=== PATIENT | female | born 1950 | race Caucasian/White ===

== ENCOUNTER → 2018-05-21 | Outpatient (CLI) | payer MEDICARE ==
[2017-01-11 13:10] VITALS: BMI 30.0
[~2018-05-21] MED LIST: ASC500 PO; CHOL400T22 PO; CIT20 PO; CYCL10TA29 PO; HYDR-653 PO; IBUP-1618 PO; LACT1CAP64 PO; LORA-773 PO; METH-543 PO; OMEG10007 PO; OXYC-865 PO; RANI-366 PO
--- NOTE | 2018-05-21 15:18 | RADIOLOGY IMAGING REPORT ---
FACILITY: [facility] PATIENT NAME: REYES MCCAIN : [id number] MR: [id number] V: [id number] EXAM DATE: ORDERING PHYSICIAN: REYES HU TECHNOLOGIST: Nakita Cespedes PROCEDURE:BILATERAL DIGITAL SCREENING MAMMOGRAM WITH CAD ASSISTED INTERPRETATION & 3D TOMOSYNTHESIS COMPARISON:Prior mammograms 03/26/17, 03/19/16. INDICATIONS:SCREENING FINDINGS: Scattered fibroglandular densities are seen throughout the breasts. There is a small focal asymmetry seen in the upper portion of the Left breast in the middle 1/3 on the Left MLO view for which Spot compression view is recommended. This is best identified on Tomographic slice 34. DIAGNOSTIC CATEGORY 0--INCOMPLETE: NEED ADDITIONAL IMAGING EVALUATION. RECOMMENDATIONS: ADDITIONAL MAMMOGRAPHIC VIEWS REQUIRED: LEFT BREAST. IMPRESSION: BIRADS 0: Incomplete. Additional view of the Left breast is recommended as described. Dictated by: Sylvia Khan M.D. on 05/21/2018 at 11:29 Transcribed by: LISA on 05/21/2018 at 11:34 Approved by: Sylvia Khan M.D. on 05/21/2018 at 15:17 [facility]
== END ==
LOC: MAMO 01:40
PROVIDERS: ATTEND Nurse Practitioner Psychiatric/Mental Health
DX: R92.8 Other abnormal and inconclusive findings on diagnostic imaging of breast (principal); Z80.3 Family history of malignant neoplasm of breast
CPT/HCPCS: 77063; 77067

== ENCOUNTER → 2018-08-05 | Outpatient (CLI) | payer MEDICARE ==
[2017-01-11 13:10] VITALS: BMI 30.0
--- NOTE | 2018-08-05 16:50 | RADIOLOGY IMAGING REPORT ---
FACILITY: [facility] - [place], [place] PATIENT NAME: REYES MCCAIN : [id number] MR: [id number] V: [id number] EXAM DATE: ORDERING PHYSICIAN: REYES HU TECHNOLOGIST: Claudia Wellington PROCEDURE:LEFT DIGITAL DIAGNOSTIC MAMMOGRAM WITH CAD ASSISTED INTERPRETATION & 3D TOMOSYNTHESIS COMPARISON:Prior mammograms 05/21/18, 03/26/17, 03/19/16. INDICATIONS:FURTHER EVALUATION FINDINGS: The patient returns for Spot compression view in the Left MLO projection with 3D Tomosynthesis. The focal asymmetry in the upper portion of the Left breast on the Left MLO view on the previous mammogram appeared compressible and apparently represented a summation shadow. DIAGNOSTIC CATEGORY 2--BENIGN FINDING. RECOMMENDATIONS: ROUTINE MAMMOGRAM AND CLINICAL EVALUATION. IMPRESSION: BIRADS 2: Benign finding. No significant abnormality is seen. Dictated by: Sylvia Khan M.D. on 08/05/2018 at 9:59 Transcribed by: LISA on 08/05/2018 at 14:20 Approved by: Sylvia Khan M.D. on 08/05/2018 at 16:49 [facility]
== END ==
LOC: MAMO 01:29
PROVIDERS: ATTEND Nurse Practitioner Psychiatric/Mental Health
DX: R92.8 Other abnormal and inconclusive findings on diagnostic imaging of breast (principal)
CPT/HCPCS: 77061; 77065

== ENCOUNTER 2018-10-06 23:16 | Emergency (ER) | payer MEDICARE ==
[2017-01-11 13:10] VITALS: Wt 79.4 kg
--- NOTE | 2018-10-06 23:26 | ER Report ---
History and Physical Time Seen By MD: 23:19 HPI/ROS CHIEF COMPLAINT: Right flank pain HISTORY OF PRESENT ILLNESS: 68-year-old female presents ambulatory with 2 days of right flank pain, not allowing her to sleep. Patient was seen before for back pain. She denies dysuria, frequency or hematuria. Patient denies fever, chills or productive cough. Patient denies specific injury, but notes she's been lifting some stuff lately. Patient status post cholecystectomy approximately 10 months ago. REVIEW OF SYSTEMS: Respiratory: No cough, no dyspnea. Cardiovascular: No chest pain, no palpitations. Gastrointestinal: No vomiting, no abdominal pain. Musculoskeletal: As above Allergies: Coded Allergies: No Known Drug Allergies (Unverified , 10/06/18) Home Meds Active Scripts Oxycodone Hcl/Acetaminophen (PERCOCET 5-325 MG TABLET) 1 Each Tablet, 1 EACH PO Q4-6H PRN for PAIN, #12 Prov:FRIDA MARADIAGA DO 10/07/18 Cyclobenzaprine Hcl (CYCLOBENZAPRINE HCL) 10 Mg Tablet, 10 MG PO TID PRN for muscle spasm relief, #12 TAB TAKE 1 TABLET BY MOUTH THREE TIMES A DAY Prov:FRIDA MARADIAGA DO 10/07/18 Reported Medications Ranitidine Hcl (ZANTAC) 150 Mg Tablet, 150 MG PO DAILY, TAB 10/10/16 Ibuprofen (Motrin) 400 Mg Tablet, 400 MG PO QDAY, #20 11/18/11 Citalopram Hydrobromide (Celexa) 20 Mg Tab, 20 MG PO QDAY 11/18/11 Discontinued Reported Medications Hydrocodone Bit/Acetaminophen (NORCO 5-325 TABLET) 1 Each Tablet, 1-2 TAB PO Q4- 6H PRN for PAIN, #30 TAB 01/11/17 Lactobacillus Acidophilus (ACIDOPHILUS) 1 Each Capsule, 1 EACH PO QDAY, CAPSULE 01/11/17 [place]-3/Dha/Epa/Fish Oil (Fish Oil 1,000 mg Softgel) 1,000 Mg (120 Mg-180 Mg) Capsule, 1 CAP PO DAILY 10/10/16 Ascorbic Acid (Vitamin C) 500 Mg Tab, 500 MG PO QDAY 11/18/11 Cholecalciferol (Vitamin D3) (VITAMIN D) 400 Unit Tab.chew, 400 UNIT PO QDAY 11/18/11 Loratadine (Allergy) 10 Mg Tablet, 10 MG PO QDAY 11/18/11 Discontinued Scripts Oxycodone Hcl/Acetaminophen (PERCOCET 5-325 MG TABLET) 1 Each Tablet, 1 EACH PO Q4-6H PRN for pain, #12 Prov:FRIDA MARADIAGA DO 10/29/16 Cyclobenzaprine Hcl (CYCLOBENZAPRINE HCL) 10 Mg Tablet, 10 MG PO TID PRN for muscle spasm relief, #20 TAB TAKE 1 TABLET BY MOUTH THREE TIMES A DAY Prov:FRIDA MARADIAGA DO 10/29/16 Past Medical/Surgical History GERD, depression Past surgical history status post cholecystectomy Reviewed Nurses Notes: Yes Old Medical Records Reviewed: Yes Hx Smoking: No Hx Substance Use Disorder: No Hx Alcohol Use: No Constitutional Vital Sign - Last 24 Hours 10/06/18 10/06/18 10/06/18 10/06/18 23:22 23:25 23:30 23:31 Temp 98.4 Pulse 82 79 Resp 16 B/P (MAP) 149/73 149/73 (98) 116/71 (86) Pulse Ox 88 92 O2 Delivery Room Air 10/06/18 10/07/18 10/07/18 10/07/18 23:53 00:00 00:01 00:16 Pulse 67 B/P (MAP) 126/74 (91) 128/73 (91) Pulse Ox 94 93 10/07/18 10/07/18 10/07/18 10/07/18 00:30 00:31 01:00 01:01 Pulse 62 B/P (MAP) 131/78 (95) 137/81 (99) Pulse Ox 89 10/07/18 10/07/18 01:06 01:21 Pulse 64 Pulse Ox 94 97 Physical Exam Vital signs stable, afebrile, pulse ox normal General Appearance: The patient is alert, has no immediate need for airway protection and no current signs of toxicity. Mild distress HEENT: Pupils equal and round no injection. TMs normal, oropharynx without redness or exudate Respiratory: Chest is non tender, lungs are clear to auscultation. No wheezing or rails, no chest wall tenderness, no rash on flank, Cardiac: regular rate and rhythm Gastrointestinal: Abdomen is soft and non tender, no masses, bowel sounds normal., No CVA tenderness Musculoskeletal: Neck: Neck is supple and non tender. Back:, Palpation of the midline of the thoracic and lumbar spine reveals no tenderness over the spinous processes. There is some discomfort on palpation of the musculature on the right side. Extremities have full range of motion and are non tender. No edema, no calf tenderness Skin: No rashes or lesions. DIFFERENTIAL DIAGNOSIS: After history and physical exam differential diagnosis was considered for back pain including but not limited to muscular pain, herniated disc, spine fracture, intra-abdominal causes and urinary tract infection. Additionally,flank pain including but not limited to musculoskeletal causes, kidney stone, pyelonephritis, shingles, and intra-abdominal causes such as diverticulitis and appendicitis. Medical Decision Making Data Points Laboratory Hematology Test 10/06/18 00:47 Urine Color Straw Urine Clarity Clear Urine pH 5.0 pH (4.8-9.5) Urine Specific [place] 1.009 Urine Protein Negative mg/dL (NEGATIVE) Urine Glucose (UA) Negative mg/dL (NEGATIVE) Urine Ketones Negative mg/dL (NEGATIVE) Urine Blood Negative (NEGATIVE) Urine Nitrite Negative (NEGATIVE) Urine Bilirubin Negative (NEGATIVE) Urine Urobilinogen Negative mg/dL (0.2-1.9) Urine Leukocyte Esterase Negative (NEGATIVE) Urine RBC 1 /HPF (0-2/HPF) Urine WBC 1 /HPF (0-5/HPF) Urine Squamous Epithelial Cells Many /LPF (</=FEW) Urine Bacteria Few /HPF (NONE-FEW) Urine Mucus None /HPF (NONE-FEW) Chemistry Test 10/06/18 00:47 Urine Color Straw Urine Clarity Clear Urine pH 5.0 pH (4.8-9.5) Urine Specific [place] 1.009 Urine Protein Negative mg/dL (NEGATIVE) Urine Glucose (UA) Negative mg/dL (NEGATIVE) Urine Ketones Negative mg/dL (NEGATIVE) Urine Blood Negative (NEGATIVE) Urine Nitrite Negative (NEGATIVE) Urine Bilirubin Negative (NEGATIVE) Urine Urobilinogen Negative mg/dL (0.2-1.9) Urine Leukocyte Esterase Negative (NEGATIVE) Urine RBC 1 /HPF (0-2/HPF) Urine WBC 1 /HPF (0-5/HPF) Urine Squamous Epithelial Cells Many /LPF (</=FEW) Urine Bacteria Few /HPF (NONE-FEW) Urine Mucus None /HPF (NONE-FEW) Urinalysis Test 10/06/18 00:47 Urine Color Straw Urine Clarity Clear Urine pH 5.0 pH (4.8-9.5) Urine Specific [place] 1.009 Urine Protein Negative mg/dL (NEGATIVE) Urine Glucose (UA) Negative mg/dL (NEGATIVE) Urine Ketones Negative mg/dL (NEGATIVE) Urine Blood Negative (NEGATIVE) Urine Nitrite Negative (NEGATIVE) Urine Bilirubin Negative (NEGATIVE) Urine Urobilinogen Negative mg/dL (0.2-1.9) Urine Leukocyte Esterase Negative (NEGATIVE) Urine RBC 1 /HPF (0-2/HPF) Urine WBC 1 /HPF (0-5/HPF) Urine Squamous Epithelial Cells Many /LPF (</=FEW) Urine Bacteria Few /HPF (NONE-FEW) Urine Mucus None /HPF (NONE-FEW) ED Course/Re-evaluation ED Course Patient was admitted to an examination room. H&P was done. The differential diagnoses was considered. Patient with right flank pain for 2 days so severe. It's been unable to let her sleep at night. She's tried ibuprofen and Tylenol without improvement. Been seen for back strain before and given Flexeril and Percocet for pain relief. Patient notes no history chronic back pain. She does note that she was moving some stuff lately and doing some heavy lifting. Patient notes no urinary tract symptoms. Her urinalysis is unremarkable. A lumbar spine x-ray is unremarkable. Patient be discharged home on Flexeril and Percocet. Again. She is advised to follow-up with primary care. She is advised to continue ibuprofen 200 mg 3 tablets 3 times a day and apply heating pad to the affected area. Decision to Disposition Date: October 07, 2018 Decision to Disposition Time: 01:11 Depart Departure Latest Vital Signs Vital Signs Date Time Temp Pulse Resp B/P (MAP) Pulse Ox O2 Delivery O2 Flow Rate FiO2 10/07/18 01:21 97 10/07/18 01:06 64 10/07/18 01:00 137/81 (99) 10/06/18 23:22 98.4 16 Room Air Impression: Primary Impression: Back pain Additional Impression: Lumbar strain Condition: Improved Disposition: HOME OR SELF-CARE Referrals: REYES HU (PCP) New Scripts Oxycodone Hcl/Acetaminophen (PERCOCET 5-325 MG TABLET) 1 Each Tablet 1 EACH PO Q4-6H PRN for PAIN, #12 Prov: FRIDA MARADIAGA DO 10/07/18 Cyclobenzaprine Hcl (CYCLOBENZAPRINE HCL) 10 Mg Tablet 10 MG PO TID PRN for muscle spasm relief, #12 TAB TAKE 1 TABLET BY MOUTH THREE TIMES A DAY Prov: FRIDA MARADIAGA DO 10/07/18 Patient Instructions: Low Back Strain (ED) Additional Instructions: Take ibuprofen 200 mg 3 tablets 3 times a day with food Apply heating pad to your back Follow-up with your primary care doctor if unimproved in 3-5 days Problem Qualifiers Primary Impression: Back pain Back pain location: low back pain Chronicity: acute Back pain laterality: right Sciatica presence: without sciatica Qualified Codes: M54.5 - Low back pain Additional Impression: Lumbar strain Encounter type: initial encounter Qualified Codes: S39.012A - Strain of muscle, fascia and tendon of lower back, initial encounter FRIDA MARADIAGA DO October 06, 2018 23:26
[2018-10-06] MEDS ORDERED: IBUPROFEN 600 MG TAB PO ONE (23:35)
[2018-10-06] MEDS ORDERED: ACETAMINOPHEN 325 MG TAB PO ONE (23:35)
[2018-10-07 01:00] VITALS: BP 137/81
[2018-10-07] MEDS ORDERED: OXYC-865 PO (01:13)
[2018-10-07] MEDS ORDERED: CYCL10TA29 PO (01:13)
[2018-10-07] MEDS ORDERED: oxyCODONE/ACETAMIN 5/325MG TH 2 TAB/BOTTLE PO ONE (01:15)
[2018-10-07] MEDS ORDERED: CYCLOBENZAPRINE HCL 10 MG TH PO ONE (01:15)
--- NOTE | 2018-10-07 01:15 | RADIOLOGY IMAGING REPORT ---
FACILITY: [facility] PATIENT NAME: Amina Barrera : 1950 MR: [id number] V: [id number] EXAM DATE: ORDERING PHYSICIAN: FRIDA MARADIAGA TECHNOLOGIST: Location: [facility] Patient: Amina Barrera : 1950 Visit/Account:[id number] Date of Sevice: 10/06/2018 L-SPINE 2 OR 3 VIEW HISTORY: Right low back pain for one day. No known injury. COMPARISON: CT abdomen pelvis 01/11/2017. No lumbar spine x-rays. TECHNIQUE: AP, lateral, and coned lateral views of the lumbar spine. FINDINGS: There are 5 nonrib-bearing lumbar type vertebral bodies. Vertebral body heights are maintai caroline. Lumbar spine angles toward the right from superior to inferior, potentially positional. There is 2 mm anterolisthesis of L4 compared to L5, new. There is mild multilevel degenerative disc disease, greatest at L3-4, not significantly changed. There are mild vascular calcifications. The sacroiliac joints are patent without widening. IMPRESSION: 1. Development of 2 mm anterolisthesis of L4 compared to L5. 2. Stable degenerative changes, but no acute osseous abnormality of the lumbar spine. Report Dictated By: Edna Hdz at 10/07/2018 1:07 AM Report E-Signed By: Edna Hdz at 10/07/2018 1:11 AM WSN:[id number]
== END 2018-10-07 01:28 | disposition home or self-care (01) ==
LOC: ER 23:32
DX: S39.012A Strain of muscle, fascia and tendon of lower back, initial encounter (principal)
CPT/HCPCS: 72100; 81001; 99283; A9270